=== PATIENT | male | born 1960 | race Caucasian/White ===

== ENCOUNTER 2019-04-07 06:34 | Emergency (ER) | payer OTHER ==
[~2019-04-07] VITALS: Ht 182.9 cm; Wt 77.1 kg
[2019-04-07] MEDS ORDERED: NORCO 5-325 TA1 EAC1 PO (07:48)
[2019-04-07] MEDS ORDERED: ACYCLOVIR 800800 MG PO (07:48)
[2019-04-07] MEDS ORDERED: MEDROLDOSEPACK PO (07:48)
[2019-04-07 08:09] VITALS: BP 146/85
== END 2019-04-07 08:05 | disposition home or self-care (01) ==
LOC: ER 06:34
DX: B02.9 Zoster without complications (principal); F17.210 Nicotine dependence, cigarettes, uncomplicated; Z88.8 Allergy status to other drugs, medicaments and biological substances